=== PATIENT | female | born 1990 | race Hispanic/Latino ===

== ENCOUNTER 2020-06-07 00:15 | Emergency (ER) | payer SELFPAY ==
[2020-06-07] MEDS ORDERED: Haloperidol 5 MG TAB ONE (00:59)
== END 2020-06-07 01:57 | disposition home or self-care (01) ==
LOC: MADERS 00:15
DX: F20.9 Schizophrenia, unspecified (principal); Z79.899 Other long term (current) drug therapy
CPT/HCPCS: 99284

== ENCOUNTER 2020-06-14 03:43 | Emergency (ER) | payer SELFPAY ==
[2020-06-14] MEDS ORDERED: Lorazepam 1 MG TAB ONE (04:10)
[2020-06-14 10:51] LABS: Hemoglobin 14.2 g/dL (12.0-16.0); Red Blood Cell (RBC) Count 4.44 mill/uL (4.20-5.40); White Blood Cell (WBC) Count 8.6 thou/uL (4.8-10.8)
[2020-06-14 10:52] LABS: #Lymphocytes 3.7 thou/uL (1.20-3.40); #Monocytes 0.6 thou/uL (0.11-0.59); #Neutrophils 3.5 thou/uL (1.40-6.50); %Basophils 1.5 % (0.0-1.0); %Lymphocytes 42.8 % (21.0-51.0); %Monocytes 7.3 % (0.0-10.0); %Neutrophils 40.3 % (42.0-75.0); Manual Diff?? NO; Mean Corpuscular Hemoglobin 31.9 pg (27.0-31.0); Mean Corpuscular Volume 93.9 fL (78.0-98.0); Mean Platelet Volume 8.2 fL (7.4-10.4); Platelet Count 276 thou/uL (130-400); RBC Distribution Width 10.6 % (11.5-14.5)
[2020-06-14 10:53] LABS: #Basophils 0.1 thou/uL (0.0-0.2); #Eosinphils 0.7 thou/uL (0.0-0.7)
[2020-06-14 10:54] LABS: Acetaminophen Less than 10.0 mcg/mL (10.0-30.0); Alcohol Less than 10 mg/dL (Less than 10); CK (CPK) 92 U/L (29-168)
[2020-06-14 10:55] LABS: Carbon Dioxide 25 mmol/L (22-29); Chloride 103 mmol/L (98-107); Potassium 3.8 mmol/L (3.5-5.1); Salicylate Less than 10.0 mg/dL (15.0-30.0); Sodium 139 mmol/L (136-145)
[2020-06-14 10:56] LABS: AST (SGOT) 21 U/L (5-34); Albumin 4.3 g/dL (3.5-5.0); Alkaline Phosphatase 68 U/L (40-110); Anion Gap 15 mmol/L (10-20); BUN (Urea Nitrogen) 19 mg/dL (7.0-18.7); Calc. Creatinine Clearance 0 mL/min (70-130); Calcium 9.2 mg/dL (7.8-10.44); Globulin 3.1 g/dL (2.4-3.5); Glucose 99 mg/dL (70-105); Protein, Total 7.4 g/dL (6.0-8.3)
[2020-06-14 11:16] LABS: ALT (SGPT) 31 U/L (8-55)
[2020-07-06 15:07] LABS: Amphetamine Detected (NotDetected); Barbiturates Screen Not Detected (NotDetected); Benzodiazepine Screen Not Detected (NotDetected); Cocaine Metabolite Screen Not Detected (NotDetected); Medtox Control Line Valid? VALID (VALID); Methadone Not Detected (NotDetected); Methamphetamine Detected (NotDetected); Opiate Screen Not Detected (NotDetected); Oxycodone Screen Not Detected (NotDetected); Phencyclidine (PCP) Not Detected (NotDetected); THC/Cannabinoid Screen Detected (NotDetected); Tricyclic Screen Not Detected (NotDetected)
[2020-07-06 15:09] LABS: Pregnancy Test - Urine (BHCG) Negative (Negative); Pregu Control Background? CLEAR/WHITE (CLR/WHITE); Pregu Control Bar Appear? YES (CONTROL BAR); Specific Gravity 1.025 (1.002-1.036)
== END 2020-06-14 10:06 | disposition home or self-care (01) ==
LOC: MADERS 03:43
DX: F15.10 Other stimulant abuse, uncomplicated (principal); F17.210 Nicotine dependence, cigarettes, uncomplicated; Z79.899 Other long term (current) drug therapy
CPT/HCPCS: 36415; 80053; 80306; 80307; 81025; 82550; 84443; 85025; 99285

== ENCOUNTER 2020-12-21 07:26 | Emergency (ER) | payer SELFPAY ==
[2020-12-21 08:06] LABS: #Basophils 0.1 thou/uL (0.0-0.2); #Eosinphils 0.8 thou/uL (0.0-0.7); #Lymphocytes 3.1 thou/uL (1.20-3.40); #Monocytes 0.7 thou/uL (0.11-0.59); #Neutrophils 4.7 thou/uL (1.40-6.50); %Eosinophils 8.1 % (0.0-10.0); %Lymphocytes 33.7 % (21.0-51.0); %Monocytes 7.2 % (0.0-10.0); %Neutrophils 50.1 % (42.0-75.0); Hemoglobin 13.1 g/dL (12.0-16.0); Mean Corpuscular HGB CONC 33.6 g/dL (32.0-36.0); Mean Corpuscular Hemoglobin 31.5 pg (27.0-31.0); Mean Corpuscular Volume 93.8 fL (78.0-98.0); Mean Platelet Volume 6.7 fL (7.4-10.4); Platelet Count 299 thou/uL (130-400); RBC Distribution Width 11.7 % (11.5-14.5); Red Blood Cell (RBC) Count 4.16 mill/uL (4.20-5.40); White Blood Cell (WBC) Count 9.3 thou/uL (4.8-10.8)
[2020-12-21 08:20] LABS: ALT (SGPT) 36 U/L (8-55); AST (SGOT) 25 U/L (5-34); Albumin 3.8 g/dL (3.5-5.0); Alkaline Phosphatase 67 U/L (40-110); Anion Gap 10 mmol/L (10-20); BHCG - Serum Negative (NEGATIVE); BUN (Urea Nitrogen) 17 mg/dL (7.0-18.7); Bilirubin, Total 0.2 mg/dL (0.2-1.2); Calc. Creatinine Clearance 0 mL/min (70-130); Calcium 9.4 mg/dL (7.8-10.44); Carbon Dioxide 25 mmol/L (22-29); Chloride 107 mmol/L (98-107); Globulin 2.9 g/dL (2.4-3.5); Glucose 103 mg/dL (70-105); Potassium 3.6 mmol/L (3.5-5.1); Pregs Control Background? CLEAR/WHITE (CLR/WHITE); Pregs Control Bar Appear? YES (CONTROL BAR); Protein, Total 6.7 g/dL (6.0-8.3); Sodium 138 mmol/L (136-145)
== END 2020-12-21 08:59 | disposition home or self-care (01) ==
LOC: MADERS 07:26
DX: Z59.00 Homelessness unspecified (principal); F17.210 Nicotine dependence, cigarettes, uncomplicated
CPT/HCPCS: 36415; 80053; 84703; 85025; 99283

== ENCOUNTER 2021-06-18 09:10 | Emergency (ER) | payer SELFPAY | END 2021-06-18 10:05 | disposition home or self-care (01) | LOC: MADERS 09:10 | DX: Z71.1 Person with feared health complaint in whom no diagnosis is made (principal); F17.210 Nicotine dependence, cigarettes, uncomplicated | CPT/HCPCS: 99283 ==

== ENCOUNTER 2021-12-25 09:22 | Emergency (ER) | payer SELFPAY | END 2021-12-25 11:39 | disposition home or self-care (01) | LOC: MADERS 09:22 | DX: Z59.00 Homelessness unspecified (principal); F17.210 Nicotine dependence, cigarettes, uncomplicated | CPT/HCPCS: 99284 ==

== ENCOUNTER 2022-12-31 08:56 | Emergency (ER) | payer MEDICAID, OTHER ==
[2022-12-31 10:07] LABS: Bilirubin Negative (Negative); Blood, Urine Negative (Negative); Glucose, Urine (Dipstick) Negative (Negative); Ketone, Urine Negative (Negative); Leukocyte Trace (Negative); Nitrite Negative (Negative); Protein, Urine (Dipstick) Negative (Neg-Trace); Urobilinogen 0.2 mg/dL (Less than 2)
[2022-12-31 10:15] LABS: CAUTI Indications for Culture Pelvic or flank pain; Clarity Hazy (Clear); RBC/HPF 0-3 HPF (0-3)
[2022-12-31 10:16] LABS: Bacteria/HPF 1+ HPF (None Seen); Squamous Epithelial 0-3 HPF (0-3); Urine Culture Reflex No No; WBC/HPF 0-3 HPF (0-3)
== END 2022-12-31 11:16 | disposition home or self-care (01) ==
LOC: MADERS 08:56
DX: O99.891 Other specified diseases and conditions complicating pregnancy (principal); R10.30 Lower abdominal pain, unspecified; O99.331 Smoking (tobacco) complicating pregnancy, first trimester; F17.290 Nicotine dependence, other tobacco product, uncomplicated; Z3A.12 12 weeks gestation of pregnancy; Z79.899 Other long term (current) drug therapy
CPT/HCPCS: 36415; 81001; 84702; 99284

== ENCOUNTER 2023-04-03 07:31 | Emergency (ER) | payer MEDICAID, OTHER ==
[2023-04-03] MEDS ORDERED: Acetaminophen 500 MG TAB ONE (08:25)
== END 2023-04-03 09:55 | disposition home or self-care (01) ==
LOC: MADERS 07:31
DX: O99.891 Other specified diseases and conditions complicating pregnancy (principal); M79.641 Pain in right hand; F17.290 Nicotine dependence, other tobacco product, uncomplicated; Z3A.25 25 weeks gestation of pregnancy

== ENCOUNTER 2023-04-05 02:07 | Emergency (ER) | payer MEDICAID ==
[2023-04-05] MEDS ORDERED: Acetaminophen 500 MG TAB ONE (02:43)
== END 2023-04-05 02:52 | disposition home or self-care (01) ==
LOC: MADERS 02:07
DX: M79.642 Pain in left hand (principal); M79.641 Pain in right hand; F20.9 Schizophrenia, unspecified; F31.9 Bipolar disorder, unspecified; F22 Delusional disorders; F17.290 Nicotine dependence, other tobacco product, uncomplicated; Z59.00 Homelessness unspecified; Z79.899 Other long term (current) drug therapy
CPT/HCPCS: 99283

== ENCOUNTER 2024-01-04 13:11 | Emergency (ER) | payer MEDICAID, OTHER, SELFPAY ==
[2024-01-04 13:58] LABS: #Basophils 0.1 thou/uL (0.0-0.2); #Eosinophils 0.5 thou/uL (0.0-0.7); #Lymphocytes 2.1 thou/uL (1.20-3.40); #Monocytes 0.3 thou/uL (0.11-0.59); #Neutrophils 3.6 thou/uL (1.40-6.50); %Basophils 1.2 % (0.0-1.0); %Eosinophils 6.9 % (0.0-10.0); %Lymphocytes 32.6 % (21.0-51.0); %Monocytes 5.2 % (0.0-10.0); %Neutrophils 54.1 % (42.0-75.0); Hematocrit 39.1 % (36.0-47.0); Hemoglobin 13.1 g/dL (12.0-16.0); Mean Corpuscular HGB CONC 33.5 g/dL (32.0-36.0); Mean Corpuscular Hemoglobin 29.2 pg (27.0-31.0); Mean Corpuscular Volume 87.1 fl (78.0-98.0); Mean Platelet Volume 8.1 fL (7.4-10.4); Platelet Count 311 10x3/uL (130-400); RBC Distribution Width 14.5 % (11.5-14.5); Red Blood Cell (RBC) Count 4.49 mill/uL (4.20-5.40); White Blood Cell (WBC) Count 6.6 10x3/uL (4.8-10.8)
[2024-01-04 14:06] LABS: Bilirubin Negative (Negative); Blood, Urine Negative (Negative); Glucose, Urine (Dipstick) Negative (Negative); Ketone, Urine Trace mg/dL (Negative); Leukocyte Trace (Negative); Nitrite Positive (Negative); Protein, Urine (Dipstick) Negative (Neg-Trace); Urobilinogen 0.2 mg/dL (Less than 2); pH, Urine 6.5 (5.0-9.0)
[2024-01-04 14:08] LABS: Clarity Cloudy (Clear)
[2024-01-04 14:09] LABS: Pregnancy Test - Urine (BHCG) Negative (Negative); Pregu Control Background? CLEAR/WHITE (CLR/WHITE); Pregu Control Bar Appear? YES (CONTROL BAR)
[2024-01-04 14:10] LABS: Anion Gap 15 mmol/L (10-20); BUN (Urea Nitrogen) 9 mg/dL (7.0-18.7); Calc. Creatinine Clearance 0 mL/min (70-130); Calcium 9.7 mg/dL (7.8-10.44); Carbon Dioxide 23 mmol/L (22-29); Chloride 109 mmol/L (98-107); Estimated GFR 107; Glucose 101 mg/dL (70-105); Potassium 3.7 mmol/L (3.5-5.1); Sodium 143 mmol/L (136-145)
[2024-01-04 14:13] LABS: Bacteria/HPF 3+ HPF (None Seen); CAUTI Indications for Culture Pelvic or flank pain; RBC/HPF None Seen HPF (0-3)
[2024-01-04 14:14] LABS: Urine Culture Reflex No No
== END 2024-01-04 14:40 | disposition home or self-care (01) ==
LOC: MADERS 13:11
DX: N39.0 Urinary tract infection, site not specified (principal); F17.290 Nicotine dependence, other tobacco product, uncomplicated
CPT/HCPCS: 36415; 80048; 81001; 81025; 85025; 99284